=== PATIENT | female | born 1985 | race Caucasian/White ===

== ENCOUNTER 2022-02-28 08:24 | Day surgery (SDC) | payer MEDICAID ==
[~2022-02-28 08:24] MED LIST: Midazolam 1 MG/ML 2 ML SDV ONE; Propofol 200 MG/20 ML SDV ONE; fentaNYL 100 MCG/2 ML SDV ONE
[2022-02-28] MEDS ORDERED: Dextrose 5%-Lactated Ringers 1,000 ML IV SCH (09:00)
== END 2022-02-28 12:20 | disposition home or self-care (01) ==
LOC: JP.SDS 08:24
PROVIDERS: ATTEND Surgery
DX: K44.9 Diaphragmatic hernia without obstruction or gangrene (principal); E66.9 Obesity, unspecified; Z88.0 Allergy status to penicillin; Z88.2 Allergy status to sulfonamides; Z88.6 Allergy status to analgesic agent; Z88.8 Allergy status to other drugs, medicaments and biological substances; Z79.899 Other long term (current) drug therapy; Z68.37 Body mass index [BMI] 37.0-37.9, adult
CPT/HCPCS: 64520; 87081; 88305; C1751; J1642; J2250; J2704; J3010; J7121

== ENCOUNTER 2022-03-15 05:25 | Inpatient (IN) | payer MEDICAID ==
[~2022-03-15 05:25] MED LIST changes: -Midazolam 1 MG/ML 2 ML SDV ONE; +Naloxone 0.4 MG/ML SDV IV PRN; -Propofol 200 MG/20 ML SDV ONE; -fentaNYL 100 MCG/2 ML SDV ONE
[2022-03-15] MEDS ORDERED: Dextrose 5%-Lactated Ringers 1,000 ML IV SCH (06:00)
[2022-03-15] MEDS ORDERED: Acetaminophen 500 MG Tab PO ONE (06:00)
[2022-03-15] MEDS ORDERED: Lidocaine 1% with EPINEPHrine 1:100,000 50 ML MDV ONE (06:58)
[2022-03-15] MEDS ORDERED: Bupivacaine 0.5% 50 ML MDV ONE (06:58)
[2022-03-15] MEDS ORDERED: Meropenem 500 MG SDV ONE (06:58)
[2022-03-15] MEDS ORDERED: Levofloxacin/Dextrose 5%-Water 500 MG in Premix Bag 1 BAG IV ONE (07:00)
[2022-03-15] MEDS ORDERED: fentaNYL 250 MCG/5 ML SDV ONE ×3 (07:14→08:14)
[2022-03-15] MEDS ORDERED: Neostigmine Methylsulfate 1 MG/ML 5 ML Syringe ONE (07:15)
[2022-03-15] MEDS ORDERED: Succinylcholine 200 MG/10 ML MDV ONE (07:15)
[2022-03-15] MEDS ORDERED: Glycopyrrolate 0.2 MG/ML 5 ML MDV ONE (07:15)
[2022-03-15] MEDS ORDERED: Dexamethasone 4 MG/ML SDV ONE (07:15)
[2022-03-15] MEDS ORDERED: Propofol 200 MG/20 ML SDV ONE (07:15)
[2022-03-15] MEDS ORDERED: Ondansetron 4 MG/2 ML SDV ONE (07:15)
[2022-03-15] MEDS ORDERED: Rocuronium 50 MG/5 ML Vial ONE ×2 (07:15→08:50)
[2022-03-15] MEDS ORDERED: Ropivacaine 50 ML, dexAMETHasone 8 MG, EPINEPHrine 0.4 MG, Sodium Chloride 0.9% 27.6 ML NERVRT SCH ×4 (07:30)
[2022-03-15] MEDS ORDERED: HYDROmorphone/Normal Saline 6 MG/30 ML PCA Vial IV PRN (07:30)
[2022-03-15] MEDS ORDERED: diphenhydrAMINE 50 MG/ML SDV IVPUSH PRN ×2 (07:30→12:00)
[2022-03-15] MEDS ORDERED: Naloxone 0.4 MG/ML SDV IVPUSH PRN (07:30)
[2022-03-15] MEDS ORDERED: Ketamine 16 MG in Sodium Chloride 0.9% 19.84 ML IV SCH (07:30)
[2022-03-15] MEDS ORDERED: Ketamine 500 MG/5 ML MDV IV SCH (07:30)
[2022-03-15] MEDS ORDERED: diphenhydrAMINE 25 MG Cap PO PRN (07:30)
[2022-03-15] MEDS ORDERED: Ondansetron 4 MG/2 ML SDV IVPUSH PRN ×2 (07:30→12:00)
[2022-03-15] MEDS: HYDROmorphone/Normal Saline 6 MG/30 ML PCA Vial IV PRN ×3 (08:06→19:13)
[2022-03-15] MEDS ORDERED: Linezolid 600 MG/300 ML Premix Bag IRR ONE (09:16)
[2022-03-15] MEDS ORDERED: Lactated Ringers 1,000 ML ONE (09:43)
[2022-03-15] MEDS ORDERED: Glucagon,Human Recombinant 1 MG Vial IM PRN ×2 (10:42→12:00)
[2022-03-15] MEDS ORDERED: 50% Dextrose in Water 50 ML Syringe IVPUSH PRN (10:42)
[2022-03-15] MEDS ORDERED: Ondansetron 4 MG/2 ML SDV IVPUSH ONE (10:45)
[2022-03-15] MEDS ORDERED: Insulin Lispro 100 Unit/ML 3 ML KwikPen SUBCUT ONE (11:00)
[2022-03-15] MEDS: Dextrose 5%-Lactated Ringers 1,000 ML IV SCH (11:43)
[2022-03-15] MEDS ORDERED: Acetaminophen 500 MG Tab PO PRN (12:00)
[2022-03-15] MEDS ORDERED: Metoclopramide 10 MG/2 ML SDV IVPUSH PRN (12:00)
[2022-03-15] MEDS ORDERED: Labetalol 20 MG/4 ML Syringe IVPUSH PRN (12:00)
[2022-03-15] MEDS: Acetaminophen 500 MG Tab PO SCH ×2 (13:14→21:51)
[2022-03-15] MEDS: hydrOXYzine HCL 100 MG/2 ML SDV IM PRN ×2 (14:21→20:23)
[2022-03-15] MEDS: Morphine 15 MG Tab.ER PO SCH ×2 (14:22→20:26)
[2022-03-15] MEDS ORDERED: MVI, Adult with Vitamin K 10 ML, Thiamine 200 MG, Zinc/Copper/Manganese/Selenium 1 ML i... IV SCH ×4 (16:00)
[2022-03-15] MEDS ORDERED: Methotrexate PF 50 MG/2 ML SDV SUBCUT ONE (16:30)
[2022-03-15] MEDS: Insulin Lispro 100 Unit/ML 3 ML KwikPen SUBCUT SCH ×2 (16:48→21:20)
[2022-03-15] MEDS: Prochlorperazine 10 MG/2 ML SDV IV PRN (17:17)
[2022-03-15] MEDS: Heparin Sodium 5,000 Units/ML Vial SUBCUT SCH (17:18)
[2022-03-15] MEDS: QUEtiapine 100 MG Tab PO SCH (20:27)
[2022-03-15] MEDS: Lactated Ringers 1,000 ML IV SCH (22:09)
[2022-03-16] MEDS: HYDROmorphone/Normal Saline 6 MG/30 ML PCA Vial IV PRN ×5 (00:46→19:38)
[2022-03-16] MEDS ORDERED: methylPREDNISolone Sodium Succinate 125 MG/2 ML SDV IV ONE (03:00)
[2022-03-16] MEDS ORDERED: Famotidine 20 MG/2 ML SDV IV ONE (03:00)
[2022-03-16] MEDS: Dextrose 5%-Lactated Ringers 1,000 ML IV SCH (03:49)
[2022-03-16] MEDS: Lactated Ringers 1,000 ML IV SCH ×2 (03:49→10:35)
[2022-03-16] MEDS ORDERED: Iopamidol 612 MG/ML 30 ML SDV PO ONE (03:51)
[2022-03-16] MEDS: Insulin Lispro 100 Unit/ML 3 ML KwikPen SUBCUT SCH ×4 (04:41→22:01)
[2022-03-16 05:16] LABS: ESTIMATED GFR 119 mL/min (>60)
[2022-03-16] MEDS: Heparin Sodium 5,000 Units/ML Vial SUBCUT SCH ×2 (05:19→17:36)
[2022-03-16] MEDS: Acetaminophen 500 MG Tab PO SCH ×3 (05:19→22:02)
[2022-03-16] MEDS: Prochlorperazine 10 MG/2 ML SDV IV PRN ×2 (05:20→16:34)
[2022-03-16] MEDS: Levofloxacin/Dextrose 5%-Water 500 MG in Premix Bag 1 BAG IV SCH (05:31)
[2022-03-16] MEDS: Morphine 15 MG Tab.ER PO SCH (08:00)
[2022-03-16] MEDS ORDERED: Ondansetron 4 MG Tab.DIS PO PRN (08:04)
[2022-03-16] MEDS: Cyclobenzaprine 10 MG Tab PO PRN ×2 (09:13→18:36)
[2022-03-16] MEDS: Docusate Sodium 100 MG Cap PO SCH ×2 (09:16→20:51)
[2022-03-16] MEDS: Bisacodyl 5 MG Tab PO SCH ×2 (09:18→20:51)
[2022-03-16] MEDS: SCOPOLAMINE PATCH CHECK TOP SCH (09:20)
[2022-03-16] MEDS: DHEA 25 MG PO SCH (09:21)
[2022-03-16] MEDS: Morphine 10 MG/0.5 ML Oral Syringe BUCCAL SCH ×3 (13:27→22:03)
[2022-03-16] MEDS ORDERED: MVI, Adult with Vitamin K 10 ML, Thiamine 200 MG, Zinc/Copper/Manganese/Selenium 1 ML i... IV SCH ×4 (16:00)
[2022-03-16] MEDS: QUEtiapine 100 MG Tab PO SCH (20:50)
[2022-03-17] MEDS: Morphine 10 MG/0.5 ML Oral Syringe BUCCAL SCH ×6 (02:05→22:57)
[2022-03-17] MEDS: Prochlorperazine 10 MG/2 ML SDV IV PRN ×2 (02:06→09:57)
[2022-03-17] MEDS: HYDROmorphone/Normal Saline 6 MG/30 ML PCA Vial IV PRN ×4 (02:27→18:37)
[2022-03-17] MEDS: Lactated Ringers 1,000 ML IV SCH (03:47)
[2022-03-17] MEDS: Cyclobenzaprine 10 MG Tab PO PRN ×2 (03:58→12:02)
[2022-03-17] MEDS: Insulin Lispro 100 Unit/ML 3 ML KwikPen SUBCUT SCH ×4 (04:46→22:04)
[2022-03-17] MEDS: Acetaminophen 500 MG Tab PO SCH ×3 (05:25→22:06)
[2022-03-17] MEDS: Heparin Sodium 5,000 Units/ML Vial SUBCUT SCH ×2 (05:26→18:15)
[2022-03-17] MEDS: Levofloxacin/Dextrose 5%-Water 500 MG in Premix Bag 1 BAG IV SCH (05:34)
[2022-03-17] MEDS ORDERED: Lactated Ringers 1,000 ML IV SCH (08:07)
[2022-03-17] MEDS: Bisacodyl 5 MG Tab PO SCH ×2 (08:09→22:06)
[2022-03-17] MEDS: Docusate Sodium 100 MG Cap PO SCH ×2 (08:09→19:51)
[2022-03-17] MEDS: DHEA 25 MG PO SCH (08:11)
[2022-03-17] MEDS: SCOPOLAMINE PATCH CHECK TOP SCH (08:12)
[2022-03-17] MEDS ORDERED: Cyanocobalamin (Vitamin B12) 1,000 MCG/ML SDV IM ONE (09:00)
[2022-03-17] MEDS: LEUCOVORIN 25 MG PO SCH (09:05)
[2022-03-17] MEDS: QUEtiapine 100 MG Tab PO SCH (22:07)
[2022-03-18] MEDS: HYDROmorphone/Normal Saline 6 MG/30 ML PCA Vial IV PRN ×2 (01:27→07:18)
[2022-03-18] MEDS: Morphine 10 MG/0.5 ML Oral Syringe BUCCAL SCH ×6 (02:10→22:00)
[2022-03-18] MEDS: Cyclobenzaprine 10 MG Tab PO PRN ×2 (04:36→19:55)
[2022-03-18] MEDS: Insulin Lispro 100 Unit/ML 3 ML KwikPen SUBCUT SCH ×4 (05:05→21:59)
[2022-03-18 05:49] LABS: ESTIMATED GFR 125 mL/min (>60)
[2022-03-18] MEDS: Acetaminophen 500 MG Tab PO SCH ×3 (05:52→21:59)
[2022-03-18] MEDS: Heparin Sodium 5,000 Units/ML Vial SUBCUT SCH ×2 (05:54→18:02)
[2022-03-18] MEDS: Levofloxacin/Dextrose 5%-Water 500 MG in Premix Bag 1 BAG IV SCH (05:56)
[2022-03-18] MEDS ORDERED: Potassium Chloride Riders 40 MEQ in Premix Bag 1 BAG IV ONE (06:24)
[2022-03-18] MEDS ORDERED: Potassium Chloride 20 MEQ, Lidocaine 1% 2 ML in Sodium Chloride 0.9% 100 ML IV SCH (07:00)
[2022-03-18] MEDS: Potassium Chloride 10 MEQ in Premix Bag 1 BAG IV SCH ×2 (07:22→08:38)
[2022-03-18] MEDS ORDERED: Lactated Ringers 1,000 ML IV SCH (08:07)
[2022-03-18] MEDS: Docusate Sodium 100 MG Cap PO SCH ×2 (08:46→19:56)
[2022-03-18] MEDS: Bisacodyl 5 MG Tab PO SCH ×2 (08:48→21:58)
[2022-03-18] MEDS ORDERED: EXENATIDE 2 MG/0.85 ML SUBCUT SCH ×2 (09:00)
[2022-03-18] MEDS ORDERED: Potassium Phosphates 3 mMole/ML 15 ML SDV IV ONE (09:00)
[2022-03-18] MEDS: Magnesium Sulfate/Water 2 GM in Premix Bag 1 BAG IV SCH ×3 (09:41→22:02)
[2022-03-18] MEDS: DHEA 25 MG PO SCH (10:07)
[2022-03-18] MEDS: Potassium Chloride 20 MEQ in Premix Bag 1 BAG IV SCH ×2 (10:33→12:42)
[2022-03-18] MEDS: LEUCOVORIN 25 MG PO SCH (10:36)
[2022-03-18] MEDS ORDERED: Oxybutynin 5 MG Tab PO PRN (12:07)
[2022-03-18] MEDS: oxyCODONE 5 MG Tab PO PRN ×3 (13:00→22:00)
[2022-03-18] MEDS: Potassium Phos in 0.9 % NaCl 15 MMOL in Premix Bag 1 BAG IV SCH ×4 (14:42→16:45)
[2022-03-18] MEDS: QUEtiapine 100 MG Tab PO SCH (21:59)
[2022-03-19] MEDS: Morphine 10 MG/0.5 ML Oral Syringe BUCCAL SCH ×6 (02:12→22:15)
[2022-03-19] MEDS: oxyCODONE 5 MG Tab PO PRN ×5 (02:17→20:51)
[2022-03-19] MEDS: Insulin Lispro 100 Unit/ML 3 ML KwikPen SUBCUT SCH ×4 (04:17→21:32)
[2022-03-19] MEDS: Magnesium Sulfate/Water 2 GM in Premix Bag 1 BAG IV SCH ×4 (04:18→22:18)
[2022-03-19] MEDS: Acetaminophen 500 MG Tab PO SCH ×3 (05:16→22:14)
[2022-03-19] MEDS: Heparin Sodium 5,000 Units/ML Vial SUBCUT SCH ×2 (05:18→17:40)
[2022-03-19 05:29] LABS: ESTIMATED GFR 131 mL/min (>60)
[2022-03-19] MEDS ORDERED: Cyanocobalamin (Vitamin B12) 1,000 MCG/ML SDV IM ONE (07:37)
[2022-03-19] MEDS: DHEA 25 MG PO SCH (08:07)
[2022-03-19] MEDS ORDERED: Indocyanine Green 25 MG SDV IV ONE (08:15)
[2022-03-19] MEDS: LEUCOVORIN 25 MG PO SCH (08:16)
[2022-03-19] MEDS: Docusate Sodium 100 MG Cap PO SCH ×2 (08:17→20:48)
[2022-03-19] MEDS: Bisacodyl 5 MG Tab PO SCH ×2 (08:18→20:48)
[2022-03-19] MEDS ORDERED: Magnesium Hydroxide 400 MG/5 ML Susp 30 ML Cup PO PRN (08:45)
[2022-03-19] MEDS ORDERED: Magnesium Hydroxide 400 MG/5 ML Susp 30 ML Cup PO ONE (09:00)
[2022-03-19] MEDS ORDERED: METHYLCOBALAMIN IM ONE (09:00)
[2022-03-19] MEDS: QUEtiapine 100 MG Tab PO SCH (20:48)
[2022-03-20] MEDS: Morphine 10 MG/0.5 ML Oral Syringe BUCCAL SCH ×3 (02:13→09:33)
[2022-03-20] MEDS: Insulin Lispro 100 Unit/ML 3 ML KwikPen SUBCUT SCH ×2 (04:11→11:29)
[2022-03-20] MEDS: Magnesium Sulfate/Water 2 GM in Premix Bag 1 BAG IV SCH (04:28)
[2022-03-20] MEDS: oxyCODONE 5 MG Tab PO PRN ×2 (05:07→09:33)
[2022-03-20] MEDS: Heparin Sodium 5,000 Units/ML Vial SUBCUT SCH (05:39)
[2022-03-20] MEDS: Acetaminophen 500 MG Tab PO SCH (05:39)
[2022-03-20] MEDS: Docusate Sodium 100 MG Cap PO SCH (08:15)
[2022-03-20] MEDS: Bisacodyl 5 MG Tab PO SCH (08:16)
[2022-03-20] MEDS: DHEA 25 MG PO SCH (08:31)
[2022-03-20] MEDS: LEUCOVORIN 25 MG PO SCH (08:42)
[2022-03-21] MEDS ORDERED: Methotrexate PF 50 MG/2 ML SDV SUBCUT SCH ×2 (11:00)
== END 2022-03-20 13:00 | disposition home or self-care (01) | DRG 326 ==
LOC: JP.SDSSCHI 05:25 → JP.2SS 08:50
PROVIDERS: ADMIT Surgery; ATTEND Surgery
PROC: 0DB80ZZ Excision of Small Intestine, Open Approach (ICD-10-PCS; principal; 2022-03-15)
PROC: 0BUT0JZ Supplement Diaphragm with Synthetic Substitute, Open Approach (ICD-10-PCS; 2022-03-15)
PROC: 0FB20ZX Excision of Left Lobe Liver, Open Approach, Diagnostic (ICD-10-PCS; 2022-03-15)
PROC: 0DB50ZZ Excision of Esophagus, Open Approach (ICD-10-PCS; 2022-03-15)
PROC: 0DB60ZZ Excision of Stomach, Open Approach (ICD-10-PCS; 2022-03-15)
DX: K44.9 Diaphragmatic hernia without obstruction or gangrene (principal); G40.301 Generalized idiopathic epilepsy and epileptic syndromes, not intractable, with status epilepticus; K92.1 Melena; E66.01 Morbid (severe) obesity due to excess calories; F11.90 Opioid use, unspecified, uncomplicated; G43.419 Hemiplegic migraine, intractable, without status migrainosus; D50.9 Iron deficiency anemia, unspecified; N95.9 Unspecified menopausal and perimenopausal disorder; K21.9 Gastro-esophageal reflux disease without esophagitis; K75.81 Nonalcoholic steatohepatitis (NASH); K31.84 Gastroparesis; Z79.899 Other long term (current) drug therapy; Z68.36 Body mass index [BMI] 36.0-36.9, adult
CPT/HCPCS: 36415; 74240; 74240-26; 80053; 81025; 82728; 82947; 83735; 83880; 84100; 85025; 85027; 86850; 86900; 86901; 88302; 88307; 88313; A9270-GY; C1781; J0171; J0330; J0780; J1100; J1170; J1642; J1644; J1815; J1956; J2020; J2185; J2405; J2704; J2710; J2795; J2930; J3010; J3410; J3411; J3475; J3480; J3490; J7120; J7121; J7500; J9260; Q9967

== ENCOUNTER 2022-05-02 05:58 | Day surgery (SDC) | payer MEDICAID ==
[2022-05-02] MEDS ORDERED: Lactated Ringers 1,000 ML IV ONE (07:00)
[2022-05-02] MEDS ORDERED: Midazolam 1 MG/ML 2 ML SDV ONE (07:23)
[2022-05-02] MEDS ORDERED: Propofol 200 MG/20 ML SDV ONE (07:23)
[2022-05-02] MEDS ORDERED: fentaNYL 50 MCG/ML SDV ONE (07:23)
[2022-05-02] MEDS: Cyanocobalamin (Vitamin B12) 1,000 MCG/ML SDV IM ONE ×2 (07:28→08:22)
[2022-05-02] MEDS ORDERED: Glycopyrrolate 0.2 MG/ML 2 ML SDV IVPUSH ONE (07:30)
[2022-05-02] MEDS ORDERED: MVI, Adult with Vitamin K 10 ML, Thiamine 200 MG, Chromium/Copper/Mang/Selen/Zn 1 ML in... IV ONE ×4 (08:00)
== END 2022-05-02 10:30 | disposition home or self-care (01) ==
LOC: JP.SDS 05:58
PROVIDERS: ATTEND Student in an Organized Health Care Education/Training Program
DX: K94.23 Gastrostomy malfunction (principal); R13.10 Dysphagia, unspecified; E66.9 Obesity, unspecified; Z68.31 Body mass index [BMI] 31.0-31.9, adult; Z88.0 Allergy status to penicillin; Z88.2 Allergy status to sulfonamides; Z88.1 Allergy status to other antibiotic agents; Z88.6 Allergy status to analgesic agent; Z88.8 Allergy status to other drugs, medicaments and biological substances
CPT/HCPCS: 43220; 76000; J1642; J2250; J2704; J3010; J3411; J3490; J7120; J3420